=== PATIENT | male | born 1965 | race Caucasian/White ===

== ENCOUNTER → 2024-07-25 14:05 | Outpatient (REF) | payer BC, SELFPAY ==
[2024-07-25 13:15] VITALS: BP 140/73; BP_SYST 70
[2024-07-25 14:30] VITALS: BP 140/73; BP_SYST 70
== END ==
LOC: RADI 14:05
PROVIDERS: ATTENDING PHYSICIAN Podiatrist Foot & Ankle Surgery; FAMILY PHYSICIAN Family Medicine Sports Medicine
DX: M77.52 Other enthesopathy of left foot and ankle (principal); M25.572 Pain in left ankle and joints of left foot; M25.472 Effusion, left ankle; M77.32 Calcaneal spur, left foot
CPT/HCPCS: 20605; 76882; 76942

== ENCOUNTER → 2024-10-10 12:28 | Outpatient (REF) | payer BC, SELFPAY ==
[2024-10-10 12:59] VITALS: BP 140/86; BP_SYST 59
== END ==
LOC: RADI 12:28
PROVIDERS: ATTENDING PHYSICIAN Podiatrist Foot & Ankle Surgery; FAMILY PHYSICIAN Family Medicine
DX: M25.572 Pain in left ankle and joints of left foot (principal); M77.52 Other enthesopathy of left foot and ankle; M76.62 Achilles tendinitis, left leg
CPT/HCPCS: 20606; 76882